=== PATIENT | female | born 1975 | race Hispanic/Latino ===

== ENCOUNTER 2017-05-29 15:02 | Inpatient (IN) | payer MEDICAID, OTHER ==
[~2017-05-29] VITALS: Ht 157.5 cm; Wt 79.4 kg
[2017-05-29] MEDS ORDERED: ONDANSETRON HCL 4 MG/2 ML VIAL ONE (15:43)
[2017-05-29] MEDS ORDERED: SODIUM CHLORIDE 0.9% 1000ML 1,000 ML IV ONE (15:44)
[2017-05-29] MEDS ORDERED: MORPHINE SULFATE 2 MG/ML 1ML SYG ONE ×2 (15:44→19:14)
[2017-05-29] MEDS ORDERED: KETOROLAC TROMETHAMINE 30MG/ML ONE (15:44)
[2017-05-29 16:00] LABS: BASOPHILS % (AUTO) 0.2 % (0.0-5.0); EOSINOPHILS % (AUTO) 0.8 % (0.0-8.0); HEMATOCRIT 35.5 % (36-48); LYMPHOCYTES % (AUTO) 8.8 % (21.0-51.0); MEAN CORPUSCULAR HEMOGLOBIN 23.1 pg (27.0-33.0); MEAN CORPUSCULAR VOLUME 72.2 fL (79-99); MONOCYTES % (AUTO) 7.6 % (3.0-13.0); NEUTROPHILS % (AUTO) 82.6 % (40.0-77.0); PLATELET COUNT (AUTO) 142 K/uL (130-400); RED BLOOD CELL COUNT(AUTO) 4.91 MIL/uL (4.00-5.50); RED CELL DISTRIBUTION WIDTH 16.4 % (11.0-15.5); WHITE BLOOD COUNT (AUTO) 9.4 K/uL (4.8-10.8)
[2017-05-29 16:21] LABS: APPEARANCE,URINE CLOUDY (CLEAR); BILIRUBIN,URINE NEGATIVE (NEGATIVE); COLOR,URINE YELLOW (YELLOW); GLUCOSE, URINE (UA) NEGATIVE (NEGATIVE); KETONES,URINE NEGATIVE (NEGATIVE); LEUKOCYTE ESTERASE ,URINE LARGE (NEGATIVE); NITRATE,URINE POSITIVE (NEGATIVE); OCCULT BLOOD,URINE SMALL (NEGATIVE); PROTEIN,URINE TRACE (NEGATIVE); UROBILINOGEN,URINE 0.2 mg/dL (0.2-1.0)
[2017-05-29 16:29] LABS: HCG,QUAL RESULT NEGATIVE (NEGATIVE)
[2017-05-29 16:47] LABS: BACTERIA,URINE Moderate /HPF (None Seen); WBC,URINE 51-100 /HPF (0-1)
[2017-05-29 16:48] LABS: MUCUS,URINE Rare LPF (None Seen); SQUAMOUS EPITHELIAL CELL,UR Rare /LPF (0-2)
[2017-05-29] MEDS ORDERED: CEFTRIAXONE SODIUM 1 GM ONE (16:48)
[2017-05-29 17:26] LABS: CREATININE 0.6 mg/dL (0.5-1.5); POTASSIUM 3.6 mmol/L (3.5-5.1)
[2017-05-29 17:31] LABS: ALBUMIN 3.6 g/dL (3.5-5.0); BILIRUBIN,DIRECT 0.1 mg/dL (0.0-0.3); BILIRUBIN,TOTAL 0.5 mg/dL (0.2-1.0); TOTAL PROTEIN, SERUM 7.6 g/dL (6.0-8.3)
[2017-05-29] MEDS ORDERED: ONDANSETRON HCL 4 MG/2 ML VIAL IVP PRN (22:15)
[2017-05-29 22:30] VITALS: BP 115/72
[2017-05-29] MEDS: SODIUM CHLORIDE 0.9% 1000ML 1,000 ML IV SCH (23:19)
[2017-05-29] MEDS: ACETAMINOPHEN 325 MG TAB PO PRN (23:22)
[2017-05-29 23:36] VITALS: BP 118/58
[2017-05-30] VITALS (7 sets, daily range): BP systolic 105–128; BP diastolic 45–74
[2017-05-30] MEDS: MORPHINE SULFATE 2 MG/ML 1ML SYG IVP PRN ×3 (02:33→13:40)
[2017-05-30] MEDS: IBUPROFEN 800 MG TAB PO PRN ×2 (05:03→17:14)
[2017-05-30] MEDS: SODIUM CHLORIDE 0.9% 1000ML 1,000 ML IV SCH ×3 (06:20→22:53)
[2017-05-30] MEDS ORDERED: FLU VACC QS2017-18 36MOS UP/PF 60 MCG/0.5 ML ML IM NR (07:00)
[2017-05-30] MEDS: PANTOPRAZOLE SODIUM 40 MG TABLET.DR PO SCH (08:46)
[2017-05-30] MEDS: ENOXAPARIN SODIUM 40 MG/0.4 ML SYRINGE SQ SCH (08:48)
[2017-05-30] MEDS ORDERED: ENOXAPARIN SODIUM 30 MG/0.3 ML SQ SCH (09:00)
[2017-05-30] MEDS: ACETAMINOPHEN 325 MG TAB PO PRN ×2 (13:47→20:04)
[2017-05-30] MEDS ORDERED: CEFTRIAXONE 1GM/D5W 50ML 50 ML IV SCH ×2 (17:00→21:15)
[2017-05-31] MEDS: MORPHINE SULFATE 2 MG/ML 1ML SYG IVP PRN ×3 (02:06→18:09)
[2017-05-31 03:49] VITALS: BP 112/71
[2017-05-31] MEDS: IBUPROFEN 800 MG TAB PO PRN ×2 (03:57→16:46)
[2017-05-31] MEDS: SODIUM CHLORIDE 0.9% 1000ML 1,000 ML IV SCH ×4 (07:33→22:15)
[2017-05-31 07:49] VITALS: BP 123/70
[2017-05-31] MEDS: PANTOPRAZOLE SODIUM 40 MG TABLET.DR PO SCH (09:10)
[2017-05-31] MEDS: ENOXAPARIN SODIUM 40 MG/0.4 ML SYRINGE SQ SCH (09:11)
[2017-05-31] MEDS ORDERED: MEROPENEM 1GM IVPB PREMIXED 1 GM IV SCH (12:15)
[2017-05-31 12:30] VITALS: BP 117/73
[2017-05-31] MEDS: MEROPENEM 1 GM VIAL IVP SCH ×2 (14:42→22:44)
[2017-05-31] MEDS: ACETAMINOPHEN 325 MG TAB PO PRN ×2 (14:52→20:44)
[2017-05-31 15:28] LABS: INR 1.02 (0.85-1.15); PROTHROMBIN TIME 10.7 SEC (9.6-11.6)
[2017-05-31 16:52] VITALS: BP 129/85
[2017-05-31 19:52] VITALS: BP 105/60
[2017-06-01] VITALS: BP 110/53
[2017-06-01 04:05] VITALS: BP_SYST 114; BP_SYST 87; BP_DIAS 55; BP_DIAS 58
[2017-06-01] MEDS: SODIUM CHLORIDE 0.9% 1000ML 1,000 ML IV SCH ×3 (04:07→10:03)
[2017-06-01] MEDS: MEROPENEM 1 GM VIAL IVP SCH ×2 (05:28→14:59)
[2017-06-01] MEDS: IBUPROFEN 800 MG TAB PO PRN (05:40)
[2017-06-01] MEDS ORDERED: FLU VACC QS2017-18 36MOS UP/PF 60 MCG/0.5 ML ML IM SCH (06:30)
[2017-06-01 07:40] VITALS: BP 127/63
[2017-06-01] MEDS: PANTOPRAZOLE SODIUM 40 MG TABLET.DR PO SCH (10:03)
[2017-06-01] MEDS: ENOXAPARIN SODIUM 40 MG/0.4 ML SYRINGE SQ SCH (10:05)
[2017-06-01 11:07] VITALS: BP 120/58
[2017-06-01] MEDS ORDERED: LEVOFLOXACIN 750 MG/D5W 150 ML 150 ML IV SCH (14:30)
[2017-06-01 16:39] VITALS: BP 115/59
[2017-06-01] MEDS ORDERED: LEVO750T46 PO (17:27)
[2017-06-02] MEDS ORDERED: INVANZ 1GM+NS 50ML IVPB 50 ML IV SCH (09:00)
== END 2017-06-01 19:30 | disposition home or self-care (01) | DRG 872 ==
LOC: EDH 15:02 → OBSVTOIN 15:03 → EDHIP 15:03 → INTOOBSV 15:03 → WSH 22:26 → 4CH 05-31 17:07
PROVIDERS: ADMIT Family Medicine; ATTEND Family Medicine
PROC: 3E0234Z Introduction of Serum, Toxoid and Vaccine into Muscle, Percutaneous Approach (ICD-10-PCS; principal; 2017-05-29)
DX: A41.9 Sepsis, unspecified organism (principal); N28.1 Cyst of kidney, acquired; N10 Acute pyelonephritis; N20.0 Calculus of kidney; Z16.24 Resistance to multiple antibiotics; Z87.442 Personal history of urinary calculi; Z23 Encounter for immunization
CPT/HCPCS: 36415; 74176; 76770; 80048; 80076; 81001; 81025; 83690; 85025; 85610; 87040; 87088; 87186; A4218; G0008; J0696; J1650; J1885; J1956; J2185; J2405; J7030; Q2038

== ENCOUNTER 2017-09-15 09:49 | Inpatient (IN) | payer MEDICAID, OTHER ==
[~2017-09-15] VITALS: Ht 154.9 cm; Wt 83.0 kg
[~2017-09-15 09:49] MED LIST: LEVO750T46 PO
[2017-09-15 10:17] LABS: APPEARANCE,URINE Turbid (CLEAR); BILIRUBIN,URINE Negative (NEGATIVE); COLOR,URINE Yellow (YELLOW); GLUCOSE, URINE (UA) Negative (NEGATIVE); KETONES,URINE 15 mg/dL (NEGATIVE); LEUKOCYTE ESTERASE ,URINE Large (NEGATIVE); NITRATE,URINE Positive (NEGATIVE); OCCULT BLOOD,URINE Small (NEGATIVE); PH,URINE 5.5 (5.0-8.0); PROTEIN,URINE POS 2+ (NEGATIVE)
[2017-09-15] MEDS ORDERED: MORPHINE SULFATE 4 MG/1ML SYG ONE ×2 (10:17→13:06)
[2017-09-15] MEDS ORDERED: ONDANSETRON HCL MDV 20ML 2 MG/ML VIAL ONE (10:17)
[2017-09-15] MEDS ORDERED: SODIUM CHLORIDE 0.9% 1000ML 1,000 ML IV ONE ×2 (10:17→15:14)
[2017-09-15 10:18] LABS: BASOPHILS % (AUTO) 0.6 % (0.0-5.0); HEMATOCRIT 34.3 % (36-48); LYMPHOCYTES % (AUTO) 17.1 % (21.0-51.0); MEAN CORPUSCULAR HEMOGLOBIN 24.2 pg (27.0-33.0); MEAN CORPUSCULAR HGB CONC 33.4 g/dL (32.0-36.0); MEAN CORPUSCULAR VOLUME 72.6 fL (79-99); MONOCYTES % (AUTO) 8.7 % (3.0-13.0); NEUTROPHILS % (AUTO) 72.6 % (40.0-77.0); PLATELET COUNT (AUTO) 184 K/uL (130-400); RED BLOOD CELL COUNT(AUTO) 4.73 MIL/uL (4.00-5.50); RED CELL DISTRIBUTION WIDTH 16.1 % (11.0-15.5); WHITE BLOOD COUNT (AUTO) 8.3 K/uL (4.8-10.8)
[2017-09-15 10:19] LABS: HCG,QUAL RESULT NEGATIVE (NEGATIVE)
[2017-09-15 10:24] LABS: BACTERIA,URINE Moderate /HPF (None Seen); RBC,URINE 0-1 /HPF (0-1); SQUAMOUS EPITHELIAL CELL,UR Rare /HPF (0-2); WBC,URINE >100 /HPF (0-1)
[2017-09-15 10:28] LABS: CREATININE 0.6 mg/dL (0.5-1.5); POTASSIUM 3.4 mmol/L (3.5-5.1)
[2017-09-15 10:33] LABS: ALBUMIN 3.4 g/dL (3.5-5.0); BILIRUBIN,TOTAL 0.5 mg/dL (0.2-1.0); TOTAL PROTEIN, SERUM 8.2 g/dL (6.0-8.3)
[2017-09-15] MEDS ORDERED: CEFTRIAXONE SODIUM 1 GM ONE (12:24)
[2017-09-15] MEDS ORDERED: POTASSIUM BICARB/CIT AC 25 MEQ TABLET.EFF ONE (13:30)
[2017-09-15] MEDS ORDERED: KETOROLAC TROMETHAMINE 30MG/ML ONE (13:30)
[2017-09-15 18:00] VITALS: BP 106/55
[2017-09-15 19:51] VITALS: BP 129/65
[2017-09-15] MEDS: SODIUM CHLORIDE 0.9% 1000ML 1,000 ML IV SCH (20:47)
[2017-09-15] MEDS ORDERED: ACETAMINOPHEN 325 MG TAB PO PRN (21:15)
[2017-09-15] MEDS ORDERED: MORPHINE SULFATE 2 MG/ML 1ML SYG IM PRN (21:15)
[2017-09-15] MEDS ORDERED: POTASSIUM CHLORIDE 20 MEQ ERTAB PO PRN (21:15)
[2017-09-15] MEDS ORDERED: KETOROLAC TROMETHAMINE 15MG/ML IM PRN (21:15)
[2017-09-15] MEDS ORDERED: LIDOCAINE HCL-MPF 1% 2ML VIAL IVP PRN (21:15)
[2017-09-15] MEDS ORDERED: POTASSIUM CHLORIDE 10% ELIXIR 20 MEQ/15 ML UDCUP PO PRN (21:15)
[2017-09-15] MEDS ORDERED: POTASSIUM CHLORIDE 20MEQ/100ML 100 ML IV PRN (21:15)
[2017-09-15] MEDS: KETOROLAC TROMETHAMINE 15MG/ML IV PRN (21:41)
[2017-09-15 23:35] VITALS: BP 124/73
[2017-09-16] VITALS (22 sets, daily range): BP systolic 97–131; BP diastolic 47–80
[2017-09-16] MEDS: KETOROLAC TROMETHAMINE 15MG/ML IV PRN ×2 (03:24→13:24)
[2017-09-16 04:58] LABS: BASOPHILS % (AUTO) 0.2 % (0.0-5.0); EOSINOPHILS % (AUTO) 1.8 % (0.0-8.0); HEMATOCRIT 30.4 % (36-48); LYMPHOCYTES % (AUTO) 19.7 % (21.0-51.0); MEAN CORPUSCULAR HEMOGLOBIN 23.8 pg (27.0-33.0); MEAN CORPUSCULAR HGB CONC 33.3 g/dL (32.0-36.0); MEAN CORPUSCULAR VOLUME 71.6 fL (79-99); MONOCYTES % (AUTO) 10.1 % (3.0-13.0); NEUTROPHILS % (AUTO) 68.2 % (40.0-77.0); PLATELET COUNT (AUTO) 178 K/uL (130-400); RED BLOOD CELL COUNT(AUTO) 4.24 MIL/uL (4.00-5.50); RED CELL DISTRIBUTION WIDTH 16.5 % (11.0-15.5); WHITE BLOOD COUNT (AUTO) 6.4 K/uL (4.8-10.8)
[2017-09-16 05:07] LABS: CREATININE 0.6 mg/dL (0.5-1.5); POTASSIUM 3.6 mmol/L (3.5-5.1)
[2017-09-16] MEDS: SODIUM CHLORIDE 0.9% 1000ML 1,000 ML IV SCH ×3 (06:44→22:49)
[2017-09-16] MEDS: FAMOTIDINE 20MG TAB 20 MG TAB PO SCH ×2 (09:32→22:48)
[2017-09-16] MEDS ORDERED: MORPHINE SULFATE 4 MG/1ML SYG ONE (09:40)
[2017-09-16] MEDS ORDERED: CEFTRIAXONE SODIUM 1 GM IVP SCH (10:00)
[2017-09-16] MEDS: LEVOFLOXACIN 750 MG/D5W 150 ML 150 ML IV SCH (12:00)
[2017-09-16] MEDS ORDERED: ISOVUE-370 50ML VIAL IV ONE (16:52)
[2017-09-16] MEDS ORDERED: FENTANYL CITRATE PF 50 MCG/1 ML 2ML VIAL ONE ×2 (17:58→18:27)
[2017-09-16] MEDS ORDERED: MIDAZOLAM HCL 1 MG/ML 2ML VIAL ONE (17:58)
[2017-09-16] MEDS ORDERED: PROPOFOL 10 MG/ML 20ML VIAL IV ONE ×2 (17:58→18:36)
[2017-09-16] MEDS ORDERED: OPIUM/BELLADONNA ALKALOIDS 1 EACH SUPP.RECT RC ONE (19:21)
[2017-09-16] MEDS: PHENAZOPYRIDINE HCL 200 MG TABLET PO SCH (22:48)
[2017-09-17 00:45] VITALS: BP 108/57
[2017-09-17 01:45] VITALS: BP 106/54
[2017-09-17 03:45] VITALS: BP 118/64
[2017-09-17] MEDS: PHENAZOPYRIDINE HCL 200 MG TABLET PO SCH ×2 (05:43→13:08)
[2017-09-17 08:00] VITALS: BP 120/77
[2017-09-17] MEDS: FAMOTIDINE 20MG TAB 20 MG TAB PO SCH (08:25)
[2017-09-17] MEDS: LEVOFLOXACIN 750 MG/D5W 150 ML 150 ML IV SCH (08:25)
[2017-09-17 12:00] VITALS: BP 110/72
[2017-09-17] MEDS: SODIUM CHLORIDE 0.9% 1000ML 1,000 ML IV SCH (12:00)
[2017-09-17] MEDS ORDERED: LEVO750T46 PO (14:29)
[2017-09-17 16:37] VITALS: BP 135/74
== END 2017-09-17 16:57 | disposition home or self-care (01) | DRG 872 ==
LOC: EDH 09:49 → EDHIP 09:50 → 4CH 18:23
PROVIDERS: ADMIT Family Medicine; ATTEND Family Medicine
PROC: BT1F1ZZ Fluoroscopy of Left Kidney, Ureter and Bladder using Low Osmolar Contrast (ICD-10-PCS; principal; 2017-09-16 18:18)
PROC: 0T778DZ Dilation of Left Ureter with Intraluminal Device, Via Natural or Artificial Opening Endoscopic (ICD-10-PCS; 2017-09-16 18:18)
DX: A41.9 Sepsis, unspecified organism (principal); N12 Tubulo-interstitial nephritis, not specified as acute or chronic; N13.6 Pyonephrosis; E66.9 Obesity, unspecified; N20.0 Calculus of kidney; N81.10 Cystocele, unspecified; R31.0 Gross hematuria; Z68.34 Body mass index [BMI] 34.0-34.9, adult; Z83.3 Family history of diabetes mellitus; Z87.440 Personal history of urinary (tract) infections; Z87.442 Personal history of urinary calculi
CPT/HCPCS: 36415; 74176; 74420; 80048; 80053; 81001; 81025; 82948; 84702; 85025; 87088; 87186; A4354; C1758; C1769; C2617; J0696; J1885; J1956; J2250; J2270; J2704; J3010; J7030; J7120; Q9967

== ENCOUNTER 2017-10-07 10:09 | Emergency (ER) | payer MEDICAID, OTHER ==
[2017-10-07 10:44] LABS: APPEARANCE,URINE Turbid (CLEAR); BASOPHILS % (AUTO) 0.3 % (0.0-5.0); BILIRUBIN,URINE Negative (NEGATIVE); COLOR,URINE Yellow (YELLOW); EOSINOPHILS % (AUTO) 3.9 % (0.0-8.0); GLUCOSE, URINE (UA) Negative (NEGATIVE); HEMATOCRIT 34.4 % (36-48); KETONES,URINE Negative (NEGATIVE); LEUKOCYTE ESTERASE ,URINE Large (NEGATIVE); LYMPHOCYTES % (AUTO) 39.9 % (21.0-51.0); MEAN CORPUSCULAR HEMOGLOBIN 23.7 pg (27.0-33.0); MEAN CORPUSCULAR HGB CONC 32.6 g/dL (32.0-36.0); MEAN CORPUSCULAR VOLUME 72.8 fL (79-99); MONOCYTES % (AUTO) 7.4 % (3.0-13.0); NEUTROPHILS % (AUTO) 48.5 % (40.0-77.0); NITRATE,URINE Positive (NEGATIVE); OCCULT BLOOD,URINE Moderate (NEGATIVE); PLATELET COUNT (AUTO) 161 K/uL (130-400); PROTEIN,URINE POS 2+ (NEGATIVE); RED BLOOD CELL COUNT(AUTO) 4.72 MIL/uL (4.00-5.50); RED CELL DISTRIBUTION WIDTH 16.8 % (11.0-15.5); WHITE BLOOD COUNT (AUTO) 4.3 K/uL (4.8-10.8)
[2017-10-07 10:54] LABS: CREATININE 0.6 mg/dL (0.5-1.5); POTASSIUM 3.6 mmol/L (3.5-5.1)
[2017-10-07 11:00] LABS: ALBUMIN 3.4 g/dL (3.5-5.0); BILIRUBIN,TOTAL 0.3 mg/dL (0.2-1.0); TOTAL PROTEIN, SERUM 7.7 g/dL (6.0-8.3)
[2017-10-07] MEDS ORDERED: ONDANSETRON HCL MDV 20ML 2 MG/ML VIAL ONE (11:02)
[2017-10-07] MEDS ORDERED: KETOROLAC TROMETHAMINE 30MG/ML ONE (11:03)
[2017-10-07 11:22] LABS: BACTERIA,URINE Many /HPF (None Seen); WBC,URINE TNTC /HPF (0-1)
[2017-10-07 11:23] LABS: SQUAMOUS EPITHELIAL CELL,UR Rare /HPF (0-2)
[2017-10-07] MEDS ORDERED: CEFTRIAXONE SODIUM 1 GM ONE (12:06)
[2017-10-07] MEDS ORDERED: SODIUM CHLORIDE 0.9% 1000ML 1,000 ML IV ONE (12:06)
[2017-10-07] MEDS ORDERED: SODIUM CHLORIDE 0.9% 50 ML IV ONE (12:06)
== END 2017-10-07 15:03 | disposition home or self-care (01) ==
LOC: EDH 10:09
DX: N12 Tubulo-interstitial nephritis, not specified as acute or chronic (principal); Z87.442 Personal history of urinary calculi
CPT/HCPCS: 36415; 74176; 80053; 81001; 84703; 85025; 96374; 96375; 99285; J0696; J1885; J7030

== ENCOUNTER 2020-01-06 20:29 | Inpatient (IN) | payer MEDICAID, OTHER ==
[~2020-01-06] VITALS: Ht 157.5 cm; Wt 75.6 kg
[2020-01-06 20:51] LABS: APPEARANCE,URINE CLOUDY (CLEAR); BILIRUBIN,URINE NEGATIVE (NEGATIVE); COLOR,URINE YELLOW (YELLOW); GLUCOSE, URINE (UA) NEGATIVE (NEGATIVE); KETONES,URINE NEGATIVE (NEGATIVE); LEUKOCYTE ESTERASE ,URINE LARGE (NEGATIVE); NITRATE,URINE POSITIVE (NEGATIVE); OCCULT BLOOD,URINE SMALL (NEGATIVE); PROTEIN,URINE 30 mg/dL (NEGATIVE)
[2020-01-06] MEDS ORDERED: DiphenhydrAMINE HCL 50 MG/ML VIAL ONE (21:01)
[2020-01-06] MEDS ORDERED: KETOROLAC TROMETHAMINE 30MG/ML ONE (21:01)
[2020-01-06] MEDS ORDERED: ONDANSETRON HCL 4 MG/2 ML VIAL ONE (21:01)
[2020-01-06] MEDS ORDERED: METOCLOPRAMIDE 10 MG/2 ML VIAL ONE (21:01)
[2020-01-06 21:06] LABS: BASOPHILS % (AUTO) 0.2 % (0.0-5.0); EOSINOPHILS % (AUTO) 0.4 % (0.0-8.0); HEMATOCRIT 33.3 % (36-48); LYMPHOCYTES % (AUTO) 17.4 % (21.0-51.0); MEAN CORPUSCULAR HEMOGLOBIN 21.6 pg (27.0-33.0); MEAN CORPUSCULAR HGB CONC 30.3 g/dL (32.0-36.0); MEAN CORPUSCULAR VOLUME 71.2 fL (79-99); MONOCYTES % (AUTO) 9.3 % (3.0-13.0); NEUTROPHILS % (AUTO) 72.5 % (40.0-77.0); PLATELET COUNT (AUTO) 181 K/uL (130-400); RED BLOOD CELL COUNT(AUTO) 4.68 MIL/uL (4.00-5.50); RED CELL DISTRIBUTION WIDTH 17.4 % (11.0-15.5); WHITE BLOOD COUNT (AUTO) 9.4 K/uL (4.8-10.8)
[2020-01-06 21:14] LABS: CREATININE 0.9 mg/dL (0.5-1.5); POTASSIUM 3.4 mmol/L (3.5-5.1)
[2020-01-06 21:18] LABS: WBC,URINE >100 /HPF (0-1)
[2020-01-06 21:19] LABS: BACTERIA,URINE Moderate /HPF (None Seen); SQUAMOUS EPITHELIAL CELL,UR Rare /HPF (0-2)
[2020-01-06 21:19] LABS: ALBUMIN 3.3 g/dL (3.5-5.0); BILIRUBIN,TOTAL 0.4 mg/dL (0.2-1.0); TOTAL PROTEIN, SERUM 8.1 g/dL (6.0-8.3)
[2020-01-06 21:21] LABS: INR 0.94 (0.85-1.15); PARTIAL THROMBOPLASTIN TIME 28.2 SEC (26.3-35.5); PROTHROMBIN TIME 10.2 SEC (9.6-11.6)
[2020-01-06] MEDS ORDERED: ZOSYN 3.375GM+NS 50ML 50 ML IV ONE (22:15)
[2020-01-06] MEDS: SODIUM CHLORIDE 0.9% 1000ML 1,000 ML IV SCH (22:49)
[2020-01-06] MEDS ORDERED: ONDANSETRON HCL 4 MG/2 ML VIAL IV PRN (23:00)
[2020-01-06] MEDS ORDERED: ACETAMINOPHEN 325 MG TAB PO PRN ×2 (23:00)
[2020-01-06] MEDS ORDERED: POTASSIUM CHLORIDE 20 MEQ ERTAB PO SCH (23:00)
[2020-01-06] MEDS ORDERED: HYDROCODONE/ACETAMINOPHEN 7.5/325 MG TAB PO PRN (23:15)
[2020-01-06] MEDS ORDERED: POTASSIUM CHLORIDE 10% ELIXIR 20 MEQ/15 ML UDCUP ONE (23:20)
[2020-01-06] MEDS ORDERED: HYDROCODONE/ACETAMINOPHEN 7.5/325 MG TAB ONE (23:26)
[2020-01-06] MEDS ORDERED: BISACODYL 10 MG SUPP.RECT RC PRN (23:30)
[2020-01-06 23:48] VITALS: BP 109/52
[2020-01-07] MEDS: DOCUSATE SODIUM 100 MG CAP PO SCH ×3 (00:03→20:50)
--- NOTE | 2020-01-07 00:15 | NUR ---
ADMIT PT ADMITTED TO ROOM 324, AAOX3.DENIES ANY PAINS NOR DISCOMFORT AT THIS TIME. ADMISSION CARE DONE. ADMISSION DATA BASE COMPLETED. ORIENTED TO ROOM AND UNIT. IN FOR MORE CARE AND MANAGEMENT. Addendum: 01/07/20 at 0032 by DIPTI SCOTT RN RN Amended: Links added.
[2020-01-07] MEDS: HYDROMORPHONE HCL 0.5 MG/0.5 ML ML IVP PRN ×5 (00:59→21:59)
--- NOTE | 2020-01-07 01:35 | NUR ---
RE-ASSESS PT IS ALREADY ASLEEP WITH RESPIRATIONS EVEN AND UNLABORED. KEPT UNDISTURBED FOR NOW. WILL CONTINUE TO MONITOR.
[2020-01-07] MEDS: SODIUM CHLORIDE 0.9% 1000ML 1,000 ML IV SCH ×3 (02:16→20:50)
[2020-01-07 03:43] VITALS: BP 98/52
[2020-01-07 04:29] LABS: HEMATOCRIT 28.8 % (36-48); MEAN CORPUSCULAR HEMOGLOBIN 21.9 pg (27.0-33.0); MEAN CORPUSCULAR HGB CONC 30.2 g/dL (32.0-36.0); MEAN CORPUSCULAR VOLUME 72.5 fL (79-99); RED BLOOD CELL COUNT(AUTO) 3.97 MIL/uL (4.00-5.50); RED CELL DISTRIBUTION WIDTH 17.2 % (11.0-15.5); WHITE BLOOD COUNT (AUTO) 5.1 K/uL (4.8-10.8)
[2020-01-07] MEDS: ZOSYN 3.375GM+NS 50ML 50 ML IV SCH ×3 (05:02→20:51)
[2020-01-07 05:06] LABS: CREATININE 0.7 mg/dL (0.5-1.5); POTASSIUM 3.5 mmol/L (3.5-5.1)
--- NOTE | 2020-01-07 05:11 | NUR ---
ROUNDS PT RESTING WELL IN BED. DENIES ANY DISCOMFORT AT THIS TIME. NO DISTRESS NOTED. DUE IV CHRISTIANO BAINS. FOR MORE CARE.
--- NOTE | 2020-01-07 06:25 | NUR ---
CONSULT TRIED TO CALL DR ESCOBAR VIA ANSWERING SERVICE BUT NO ANSWER FROM . WILL ENDORSE TO AM SHIFT TO CALL CONSULT.
[2020-01-07] MEDS ORDERED: LACTULOSE 20 GM/30 ML UDCUP ONE (07:41)
[2020-01-07] MEDS: ENOXAPARIN SODIUM 40 MG/0.4 ML SYRINGE SQ SCH (07:45)
[2020-01-07 08:13] VITALS: BP 117/68
[2020-01-07] MEDS ORDERED: LACTULOSE 20 GM/30 ML UDCUP PO SCH (09:00)
[2020-01-07 11:45] VITALS: BP 114/54
--- NOTE | 2020-01-07 16:30 | NUR ---
CM NOTE Chart reviewed, plan of care discussed today w RN, Ashleigh declining consult as per rn, pt has not completed follow up appointments in the past. IA pending, old chart reviewed, two admits in 2018 for similar problems. At that time per Cm notes, pt was independent without services or DME, living w spouse: will follow up for IA in am. Addendum: 01/08/20 at 0813 by VICTOR MANUEL DHILLON RN Amended: Links added.
[2020-01-07 16:41] VITALS: BP 129/72
[2020-01-07 19:57] VITALS: BP 113/50
--- NOTE | 2020-01-07 20:50 | NUR ---
MEDS SHIFT ASSESSMENT DONE, PLEASE REFER TO CHART. DUE MEDS ADMINISTERED, TOLERATED WELL. KEPT RESTED AND COMFORTABLE IN BED. CALL LIGHT WITHIN REACH. WILL MONITOR PT. Addendum: 01/07/20 at 2212 by DIPTI SCOTT RN RN Amended: Links added.
--- NOTE | 2020-01-07 22:00 | NUR ---
PAIN PT CALLS FOR PAIN MEDICATION. CLAIMS OF LEFT FLANK PAINS, SCORE OF 7. MEDICATED WITH DILAUDID IV. KEPT RESTED AND COMFORTABLE IN BED. WILL RE-ASSESS PT. CALL LIGHT WITHIN REACH.
[2020-01-07 23:30] VITALS: BP 109/70
[2020-01-08] MEDS: SODIUM CHLORIDE 0.9% 1000ML 1,000 ML IV SCH ×3 (01:07→08:09)
--- NOTE | 2020-01-08 02:00 | NUR ---
ROUNDS PT FAIRLY ASLEEP, WITH RESPIRATIONS EVEN AND UNLABORED. NO NOTED DISTRESS. KEPT UNDISTURBED FOR NOW. WILL MONITOR PT. CALL LIGHT WITHIN REACH.
[2020-01-08 03:25] VITALS: BP 108/79
[2020-01-08] MEDS: ZOSYN 3.375GM+NS 50ML 50 ML IV SCH (04:28)
--- NOTE | 2020-01-08 04:30 | NUR ---
MEDS PT RESTIGN WELL. DENIES ANY NEEDS AT THIS TIME. ALFONSO BAINS. KEPT COMFORTABLE. FOR MORE CARE.
[2020-01-08 08:27] VITALS: BP 113/75
[2020-01-08] MEDS: ENOXAPARIN SODIUM 40 MG/0.4 ML SYRINGE SQ SCH (08:35)
[2020-01-08] MEDS: DOCUSATE SODIUM 100 MG CAP PO SCH (08:35)
[2020-01-08] MEDS ORDERED: CEFD300C3 PO (10:24)
--- NOTE | 2020-01-08 11:22 | NUR ---
CM NOTE DISCHARGE HOME/IA PATIENT DISCHARGED HOME TODAY, UNABLE TO DO IA. PER NURSE, NO NEEDS VERBALIZED. Addendum: 01/08/20 at 1122 by NELLA HARDWICK RN CM Amended: Links added.
[2020-01-08 11:23] VITALS: BP 110/51
--- NOTE | 2020-01-08 15:30 | NUR ---
NOTE DISCHARGE INSTRUCTIONS GIVEN AT THIS TIME. REFER TO DC SUMMARY FOR DETAILS.
== END 2020-01-08 16:15 | disposition home or self-care (01) | DRG 690 ==
LOC: EDH 20:29 → EDHIP 20:30 → 3DH 23:54
PROVIDERS: ADMIT Internal Medicine; ATTEND Internal Medicine
DX: N10 Acute pyelonephritis (principal); N20.0 Calculus of kidney; E87.6 Hypokalemia; K59.00 Constipation, unspecified; K80.20 Calculus of gallbladder without cholecystitis without obstruction; Z87.440 Personal history of urinary (tract) infections; Z87.442 Personal history of urinary calculi
CPT/HCPCS: 36415; 74176; 76770; 80048; 80053; 81001; 81025; 82550; 83605; 83690; 83735; 85025; 85027; 85610; 85730; 87040; 87077; 87088; 87186; G0378; J1170; J1200; J1650; J1885; J2405; J2543; J2765; J7030

== ENCOUNTER 2023-04-29 12:35 | Emergency (ER) | payer MEDICAID, OTHER ==
[~2023-04-29] VITALS: Ht 157.5 cm; Wt 83.9 kg
[~2023-04-29 12:35] MED LIST changes: +CEFD300C3 PO; -LEVO750T46 PO
[2023-04-29] MEDS ORDERED: IBUPROFEN 600 MG TABLET PO ONE (13:30)
[2023-04-29] MEDS ORDERED: ACETAMINOPHEN 500 MG TABLET PO ONE (13:30)
[2023-04-29 13:40] LABS: SARS-CoV-2, RNA, NAAT NEGATIVE SARS CoV-2 (NEGATIVE)
[2023-04-29 13:44] LABS: INFLUENZA TYPE A Negative For Type A (NEGATIVE); INFLUENZA TYPE B Negative For Type B (NEGATIVE)
[2023-04-29 13:53] LABS: RAPID GROUP A STREP positive (NEGATIVE)
[2023-04-29 14:10] LABS: APPEARANCE,URINE CLEAR (CLEAR); BILIRUBIN,URINE NEGATIVE (NEGATIVE); COLOR,URINE LIGHT-YELLOW (YELLOW); GLUCOSE, URINE (UA) NEGATIVE (NEGATIVE); KETONES,URINE 20 mg/dL (NEGATIVE); LEUKOCYTE ESTERASE ,URINE NEGATIVE Leu/uL (NEGATIVE); NITRATE,URINE NEGATIVE (NEGATIVE); OCCULT BLOOD,URINE NEGATIVE (NEGATIVE); PH,URINE 7.5 (5.0-8.0); PROTEIN,URINE NEGATIVE (NEGATIVE); UROBILINOGEN,URINE 0.2 mg/dL (0.2-1.0)
[2023-04-29 14:20] LABS: ADD UA MICROSCOPIC YES
[2023-04-29 14:22] LABS: MUCUS,URINE RARE LPF (None Seen); SQUAMOUS EPITHELIAL CELL,UR RARE /HPF (0-2)
[2023-04-29 14:30] VITALS: TEMP 99.7
[2023-04-29] MEDS ORDERED: PENICILLIN G BENZATHINE LA 1.2 MILUNITS/2 ML SYG IM ONE (14:30)
[2023-04-29] MEDS ORDERED: CEFTRIAXONE 1G VIAL IM ONE (15:00)
[2023-04-29] MEDS ORDERED: DEXAMETHASONE SOD PHOSPHATE 4 MG/ML 1ML VIAL IM ONE (15:00)
[2023-04-29] MEDS ORDERED: AMOX1TAB16 PO (15:36)
[2023-04-29 16:08] VITALS: BP 133/65; PULSE 86; RESP 18; O2SAT 98
== END 2023-04-29 16:08 | disposition home or self-care (01) ==
LOC: EDH 12:35
DX: J02.0 Streptococcal pharyngitis (principal); M54.50 Low back pain, unspecified; Z20.822 Contact with and (suspected) exposure to COVID-19; Z79.899 Other long term (current) drug therapy; Z98.890 Other specified postprocedural states
CPT/HCPCS: 99284; 87635; 87880; 87804 ×2; 81001; 96372 ×2; J1100; C9803; J0696

== ENCOUNTER 2024-06-04 09:18 | Emergency (ER) | payer SELFPAY ==
[~2024-06-04] VITALS: Ht 154.9 cm; Wt 80.7 kg
[~2024-06-04 09:18] MED LIST changes: +AMOX1TAB16 PO
[2024-06-04 10:02] LABS: BILIRUBIN,URINE NEGATIVE (NEGATIVE); GLUCOSE, URINE (UA) NEGATIVE (NEGATIVE); KETONES,URINE NEGATIVE (NEGATIVE); LEUKOCYTE ESTERASE ,URINE 500 Leu/uL (NEGATIVE); NITRATE,URINE 2+ (NEGATIVE); OCCULT BLOOD,URINE SMALL (NEGATIVE); PROTEIN,URINE 100 mg/dL (NEGATIVE); UROBILINOGEN,URINE 0.2 mg/dL (0.2-1.0)
[2024-06-04 10:06] LABS: BASOPHILS # (AUTO) 0.01 K/uL (0.00-0.20); BASOPHILS % (AUTO) 0.2 % (0.0-5.0); EOSINOPHILS # (AUTO) 0.25 K/uL (0.00-0.70); EOSINOPHILS % (AUTO) 4.9 % (0.0-8.0); HEMATOCRIT 37.3 % (36-48); LYMPHOCYTES # (AUTO) 2.2 K/uL (1.0-4.8); LYMPHOCYTES % (AUTO) 43.6 % (21.0-51.0); MEAN CORPUSCULAR HEMOGLOBIN 24.5 pg (27.0-33.0); MEAN CORPUSCULAR HGB CONC 31.1 g/dL (32.0-36.0); MEAN CORPUSCULAR VOLUME 78.7 fL (79-99); MONOCYTES # (AUTO) 0.3 K/uL (0.1-1.0); MONOCYTES % (AUTO) 6.6 % (3.0-13.0); NEUTROPHILS # (AUTO) 2.3 K/uL (1.8-7.7); NEUTROPHILS % (AUTO) 44.7 % (40.0-77.0); PLATELET COUNT (AUTO) 190 K/uL (130-400); RED BLOOD CELL COUNT(AUTO) 4.74 MIL/uL (4.00-5.50); RED CELL DISTRIBUTION WIDTH 18.6 % (11.0-15.5); WHITE BLOOD COUNT (AUTO) 5.1 K/uL (4.8-10.8)
[2024-06-04] MEDS: ondanSETRON 4MG INJ IVP ONE (10:06)
[2024-06-04] MEDS: 0.9%NACL 1000ML 1,000 ML IV ONE (10:06)
[2024-06-04] MEDS: morPHINE 2 MG SYG IVP ONE (10:07)
[2024-06-04 10:13] LABS: ADD UA MICROSCOPIC YES; APPEARANCE,URINE CLOUDY (CLEAR); COLOR,URINE YELLOW (YELLOW)
[2024-06-04 10:17] LABS: CREATININE 0.7 mg/dL (0.5-1.0); POTASSIUM 3.7 mmol/L (3.5-5.1)
[2024-06-04 10:19] LABS: BACTERIA,URINE MOD /HPF (None Seen); MUCUS,URINE RARE LPF (None Seen); RBC,URINE 26-50 /HPF (0-1); SQUAMOUS EPITHELIAL CELL,UR RARE /HPF (0-2); WBC,URINE TNTC /HPF (0-1)
--- NOTE | 2024-06-04 11:17 | HMCIMG ---
CT ABDOMEN/PELVIS W/O CONTRAST HISTORY: Left flank pain COMPARISON: 01/06/2020 TECHNIQUE: Multiple sequential axial images of the abdomen and pelvis were obtained from the dome of the diaphragm through symphysis pubis. Patient was not given contrast through intravenous route. Oral contrast was not given. FINDINGS: No pleural effusion is seen bilaterally. There is no evidence of parenchymal disease or pulmonary nodule of the visualized lower lungs. Degenerative changes of the thoracolumbar spine are present. The heart is not enlarged. Liver measures 15.4 cm. There is 12 mm right hepatic cyst inferiorly. The liver, spleen, adrenal glands and pancreas are unremarkable. No hydronephrosis is seen on the right. There is left hydronephrosis with left renal stones with the largest measuring 6 mm. Complex fluid is seen in the left renal pelvis may be related to pyelonephritis. Left ureteral stent is seen. Urinalysis correlation would be helpful. Fecal material is seen in the colon. There are normal size retroperitoneal and mesenteric lymph nodes. No ascites is seen. Appendix is not seen. Pelvic sidewalls are symmetric bilaterally. Bladder is well distended without wall thickening. IMPRESSION: 1. There is left hydronephrosis with left renal stones with the largest measuring 6 mm. Complex fluid is seen in the left renal pelvis may be related to pyelonephritis. Left ureteral stent is seen. Urinalysis correlation would be helpful. CT was performed with one or more following dose reduction techniques: automated exposure control, adjustment of the mA and kv according to patient's size, or use of a iterative reconstruction technique.
--- NOTE | 2024-06-04 11:31 | ERN ---
General Chief Complaint: Pelvic Pain Stated Complaint: PELVIC PAIN X 2 MONTHS Time Seen by MD: 09:22 Time Seen by Midlevel: 09:22 Source: patient History of Present Illness Initial Comments Patient is a 48-year-old female with a past medical history of kidney stones presenting to the emergency department with left flank pain that has progressively gotten worse over the last two weeks. She also reports pelvic pain, hematuria, and dysuria. She reports having a left-sided stent placed approximately two months ago. Two weeks ago she was seen in the emergency department for similar symptoms and was diagnosed with a urinary tract infection and sent home with oral antibiotics. Patient has been unable to follow up with Urology. Allergies: Coded Allergies: No Known Allergies (Unverified Allergy, Unknown, 05/29/17) Home Meds Active Scripts Amoxicillin/Potassium Clav (Amox Tr-K Clv 875-125 mg Tab) 875 Mg-125 Mg Tablet, 1 EACH PO BID for 10 Days, #20 TAB Prov:CHECO JESUS 04/29/23 Cefdinir (Cefdinir) 300 Mg Capsule, 300 MG PO BID for 10 Days, #20 CAP Prov:BRIANA SOLER MD 01/08/20 Past Medical History Past Medical History: No Pertinent History, Kidney Stone Past Surgical History: Other Surgical History Other: HERNIA , KIDNEY STONES Female( History) LMP: Apr 06, 2024 ROS Dictation CONSTITUTIONAL: Negative except for HPI HEAD/FACE: Negative except for HPI EENT: Negative except for HPI RESPIRATORY: Negative except for HPI GASTROINTESTINAL/ABDOMINAL: Negative except for HPI GENITOURINARY: Negative except for HPI MUSCULOSKELETAL: Negative except for HPI INTEGUMENTARY: Negative except for HPI NEUROLOGICAL/PSYCH: Negative except for HPI HEMATOLOGIC/LYMPHATIC: Negative except for HPI All Systems Negative, Except as noted above. 13 point review of systems assessed and all negative except for above. Physical Exam Physical Exam Dictation Vital Signs reviewed General Appearance: Alert, oriented x 3, moderate distress Head and Face: non-traumatic. Eyes: PERRL, pink conjunctivas, eyelid no trauma, anterior chamber with arcus senilis. Ears: Pinnas intact and no signs of trauma or erythema ear canals clear and no discharge TM no erythema Nose: No discharge, no bleeding. Oropharynx: Mouth normal, tongue pink, pharynx clear,no erythema, tonsils no exudates, no abscesses noted, mucous membrane moist Neck: Supple, non-tender, no thyromegaly, no masses, no JVD, no bruits Breast:Deferred Chest:No tenderness, no crepitus, no paradoxical movement, no retractions Lungs:Clear, well-ventilated, symmetric, no rales, no wheezing, no rhonchi, no stridor, good breath sounds bilaterally Heart: Regular rate, regular rhythm, no murmur, no gallops Vascular: no peripheral edema, Abdomen: Soft, positive bowel sounds, nondistended, no guarding, Left CVA tenderness, no rebound, no masses no hepatomegaly, no splenomegaly, no Grove's sign, no hernias. Rectal: Deferred Genital: Deferred Neurological: Normal speech, motor function intact, sensory function intact Musculoskeletal: Neck nontender, full range of motion, back nontender, full range of motion, Extremities: nontender, full range of motion Skin: Color pink, dry, no turgor, no rash, no lacerations, no abrasions, no contusions. Lymphatic: Deferred Results Laboratory and Microbiology Lab and Micro Result Laboratory Tests Test 06/04/24 09:35 06/04/24 09:48 Urine Color YELLOW (YELLOW) Urine Appearance CLOUDY (CLEAR) H Urine pH 7.0 (5.0-8.0) Urine Specific [place] 1.021 (1.001-1.031) Urine Protein 100 mg/dL (NEGATIVE) H Urine Glucose (UA) NEGATIVE mg/dL (NEGATIVE) Urine Ketones NEGATIVE mg/dL (NEGATIVE) Urine Occult Blood SMALL (NEGATIVE) H Urine Nitrate 2+ (NEGATIVE) H Urine Bilirubin NEGATIVE mg/dL (NEGATIVE) Urine Urobilinogen 0.2 mg/dL (0.2-1.0) Urine Leukocyte Esterase 500 Caterina/uL (NEGATIVE) H Urine RBC 26-50 /HPF (0-1) H Urine WBC TNTC /HPF (0-1) H Urine Squamous Epithelial Cells RARE /HPF (0-2) Urine Bacteria MOD /HPF (None Seen) White Blood Count 5.1 K/uL (4.8-10.8) Red Blood Count 4.74 MIL/uL (4.00-5.50) Hemoglobin 11.6 g/dL (12.0-16.0) L Hematocrit 37.3 % (36-48) Mean Corpuscular Volume 78.7 fL (79-99) L Mean Corpuscular Hemoglobin 24.5 pg (27.0-33.0) L Mean Corpuscular Hemoglobin Concent 31.1 g/dL (32.0-36.0) L Red Cell Distribution Width 18.6 % (11.0-15.5) H Platelet Count 190 K/uL (130-400) Mean Platelet Volume 10.5 fL (7.5-10.5) Immature Granulocyte % (Auto) 0.0 % (0-1) Neutrophils (%) (Auto) 44.7 % (40.0-77.0) Lymphocytes (%) (Auto) 43.6 % (21.0-51.0) Monocytes (%) (Auto) 6.6 % (3.0-13.0) Eosinophils (%) (Auto) 4.9 % (0.0-8.0) Basophils (%) (Auto) 0.2 % (0.0-5.0) Neutrophils # (Auto) 2.3 K/uL (1.8-7.7) Lymphocytes # (Auto) 2.2 K/uL (1.0-4.8) Monocytes # (Auto) 0.3 K/uL (0.1-1.0) Eosinophils # (Auto) 0.25 K/uL (0.00-0.70) Basophils # (Auto) 0.01 K/uL (0.00-0.20) Absolute Immature Granulocyte (auto 0.00 K/uL (0-1) Nucleated Red Blood Cells 0.0 % (0.0-0.19) Red Blood Cell Morphology See comments Sodium Level 143 mmol/L (136-145) Potassium Level 3.7 mmol/L (3.5-5.1) Chloride Level 108 mmol/L (101-111) Carbon Dioxide Level 26 mmol/L (21-32) Blood Urea Nitrogen 15 mg/dL (7-18) Creatinine 0.7 mg/dL (0.5-1.0) Glomerular Filtration Rate Calc 108 mL/min (>90) Random Glucose 102 mg/dL (70-105) Lactic Acid Level 1.6 mmol/L (0.8-2.5) Total Calcium 8.6 mg/dL (8.5-10.1) Procalcitonin < 0.05 ng/mL (0.05-0.5) L Serum Test, Qualitative NEGATIVE (NEGATIVE) Labs Reviewed?: Yes MDM MDM: Differential diagnosis: Hydronephrosis, ureter stone, urinary tract infection, pyelonephritis Rationale: Tests considered and ordered secondary to shared decision making include: Previous outside records reviewed: Old ER visits. Risk of complication and/or morbidity or mortality of patient management: None Medications-Per medication reconciliation Need for hospitalization: Patient does meet criteria for hospitalization. Need for emergency major/minor surgery: No There are no social concerns with this patient. Prescription drug management Prescriptions will include symptomatic care Patient's prior external medical records from other ER visits were reviewed by me as indicated. Prior testing and results from previous visits were reviewed. Prior tests were taken into account with medical decision making and resource utilization, independent historian/historians were used to obtain complete medical history. I independently interpreted the test that were performed, results were reviewed by me and considered findings on radiology if ordered. Medical management and examination interpretation discussions were had by me with other qualified healthcare professionals as indicated for the patient's care. ED Course Orders Procedure Category Date Status Time Cbc With Differential LAB 06/04/24 Complete 09:32 Basic Metabolic Panel LAB 06/04/24 Complete 09:32 Testing, LAB 06/04/24 Complete Serum Hcg 09:32 Urinalysis Profile LAB 06/04/24 Complete 09:32 Procalcitonin LAB 06/04/24 Complete 09:32 Lactic Acid LAB 06/04/24 Complete 09:32 Ct Abdomen/Pelvis W/O CT 06/04/24 Resulted Contrast 09:32 0.9%Nacl 1000ml (Ns PHA 06/04/24 Complete 1000ml) 10:00 Morphine 2mg Syg PHA 06/04/24 Complete (Morphine 2mg Syg) 10:00 Ondansetron 4mg Inj PHA 06/04/24 Complete (Zofran 4mg Inj) 10:00 Culture Urine EBONY 06/04/24 In Process 10:13 Ceftriaxone 1g Vial PHA 06/04/24 Complete (Rocephine 1g Inj) 12:00 Ketorolac PHA 06/04/24 Complete Tromethamine 15mg/Ml 11:39 Ketorolac PHA 06/04/24 Complete Tromethamine 15mg/Ml 12:00 Current Medications Medications (Trade) Dose Ordered Sig/[place] Route PRN Reason Start Time Stop Time Status Last Admin Dose Admin Ceftriaxone Sodium (ROCEphine 1G INJ) 1 gm ONCE ONCE IVPB 06/04/24 12:00 06/04/24 12:01 DC 06/04/24 11:42 Ketorolac Tromethamine (toRADol) 15 mg ONCE ONCE IV 06/04/24 12:00 06/04/24 12:01 DC 06/04/24 11:45 Ketorolac Tromethamine (toRADol) 15 mg STK-MED ONCE .ROUTE 06/04/24 11:39 06/04/24 11:43 DC Morphine Sulfate (morPHINE 2MG SYG) 2 mg ONCE ONCE IVP 06/04/24 10:00 06/04/24 10:01 DC 06/04/24 10:07 Ondansetron HCl (zoFRAN 4MG INJ) 4 mg ONCE ONCE IVP 06/04/24 10:00 06/04/24 10:01 DC 06/04/24 10:06 Sodium Chloride 1,000 ml @ 0 mls/hr ONCE ONCE IV 06/04/24 10:00 06/04/24 10:01 DC 06/04/24 10:06 Vital Signs Date Time Temp Pulse Resp B/P (MAP) Pulse Ox O2 Delivery O2 Flow Rate FiO2 06/04/24 13:05 98.2 59 16 135/78 100 Room Air* 0 21 06/04/24 09:52 63 18 151/90 99 Room Air* 0 21 06/04/24 09:20 97.9 63 16 151/90 100 Room Air 0 [place] [address] IMAGING REPORT Signed PATIENT: ALICJA EUBANKS MR#: [id number] : 1975 SEX: F AGE: 48 LOCATION: [facility] ORDER STATUS: REG ER REPORT#: [id number] SERVICE 09 REASON: left flank pain s/o stent placed ORDERING PHYSICIAN: SHONDA GILBERT PROCEDURE: ABD PEL WO - CT ABDOMEN/PELVIS W/O CONTRAST CT ABDOMEN/PELVIS W/O CONTRAST HISTORY: Left flank pain COMPARISON: 01/06/2020 TECHNIQUE: Multiple sequential axial images of the abdomen and pelvis were obtained from the dome of the diaphragm through symphysis pubis. Patient was not given contrast through intravenous route. Oral contrast was not given. FINDINGS: No pleural effusion is seen bilaterally. There is no evidence of parenchymal disease or pulmonary nodule of the visualized lower lungs. Degenerative changes of the thoracolumbar spine are present. The heart is not enlarged. Liver measures 15.4 cm. There is 12 mm right hepatic cyst inferiorly. The liver, spleen, adrenal glands and pancreas are unremarkable. No hydronephrosis is seen on the right. There is left hydronephrosis with left renal stones with the largest measuring 6 mm. Complex fluid is seen in the left renal pelvis may be related to pyelonephritis. Left ureteral stent is seen. Urinalysis correlation would be helpful. Fecal material is seen in the colon. There are normal size retroperitoneal and mesenteric lymph nodes. No ascites is seen. Appendix is not seen. Pelvic sidewalls are symmetric bilaterally. Bladder is well distended without wall thickening. IMPRESSION: 1. There is left hydronephrosis with left renal stones with the largest measuring 6 mm. Complex fluid is seen in the left renal pelvis may be related to pyelonephritis. Left ureteral stent is seen. Urinalysis correlation would be helpful. CT was performed with one or more following dose reduction techniques: automated exposure control, adjustment of the mA and kv according to patient's size, or use of a iterative reconstruction technique. DICTATED BY: JOANNE BENNETT MD DATE: 06/04/24 1106 ELECTRONICALLY SIGNED BY: JOANNE BENNETT MD DATE: 06/04/24 1117 DX & DISP Disposition: Transfer ([facility] ) Departure Impression: Primary Impression: Acute pyelonephritis Condition: Stable Referrals: SELF,REFERRAL (PCP) I have reviewed the case, and I agree with, Diagnosis and Plan I performed the substantive portion of the visit. I have reviewed and personally made and approve the management plan that is documented in the note by myself or the KEN. I acknowledge for responsibility for the patient's management plan. SHONDA GILBERT Jun 04, 2024 11:31
[2024-06-04] MEDS: cefTRIAXone 1G VIAL IVPB ONE (11:42)
[2024-06-04] MEDS: ketOROlac 15MG/ML VIAL (15MG/ML) ONE (11:44)
[2024-06-04] MEDS: ketOROlac 15MG/ML VIAL (15MG/ML) IV ONE (11:45)
--- NOTE | 2024-06-04 12:57 | NUR ---
[facility] MADE AWARE OF TRANSFER BY VULNERABILITY RESEARCHER
--- NOTE | 2024-06-04 13:03 | NUR ---
PATIENT REPORT [place]IV[place] [facility] [place]
[2024-06-04 13:05] VITALS: BP 135/78; PULSE 59; RESP 16; TEMP 98.2; O2SAT 100
== END 2024-06-04 18:54 | disposition short-term general hospital (02) ==
LOC: EDH 09:18
DX: N13.6 Pyonephrosis (principal); Z79.899 Other long term (current) drug therapy
CPT/HCPCS: 99285; 74176; 96374; 96375; 96361; 80048; 84703; 85025; 87086 ×2; 87186; 83605; 81001; 36415; 84145; J1885; J2270; J7030; J0696; J2405